=== PATIENT | female | born 1980 | race Caucasian/White ===

== ENCOUNTER → 2022-08-13 09:15 | Outpatient (CLI) | payer BC, SELFPAY ==
--- NOTE | ~2022-08-13 | US_ITS ---
EXAMINATION: US soft tissue head and neck DATE: 08/13/2022 09:36 INDICATION: Tender lymph nodes behind right ear. TECHNIQUE: Multiple grayscale and Doppler ultrasound images of the head and neck were obtained. COMPARISON: None FINDINGS: There are normal superficial lymph nodes posterior to right ear. IMPRESSION: 1. Normal superficial lymph node posterior to right ear. Reviewed, dictated and finalized at location A.
== END ==
PROVIDERS: PCP Family Medicine; Visit Provider Nurse Practitioner
DX: R09.89 Other specified symptoms and signs involving the circulatory and respiratory systems (principal)
CPT/HCPCS: 76536

== ENCOUNTER 2022-08-16 10:06 | Outpatient (CLI) | payer BC, SELFPAY | END 2022-08-16 10:07 | disposition home or self-care (01) | LOC: ANHGOSHLAB 10:08 | PROVIDERS: PCP Family Medicine; Visit Provider Nurse Practitioner | DX: Z13.6 Encounter for screening for cardiovascular disorders (principal); Z13.29 Encounter for screening for other suspected endocrine disorder; Z13.220 Encounter for screening for lipoid disorders; Z13.21 Encounter for screening for nutritional disorder | CPT/HCPCS: 36415 ==

== ENCOUNTER 2022-08-30 07:01 | Outpatient (CLI) | payer BC, SELFPAY ==
[2022-08-30 07:28] LABS: Hematocrit 43.1 % (37.0-47.0); Hemoglobin 14.5 g/dL (12.0-15.0); Mean Corpuscular HGB Conc 33.6 g/dl (32-36); Mean Corpuscular Hemoglobin 29.5 pg (26-34); Mean Corpuscular Volume 87.8 fl (80-100); Mean Platelet Volume 8.2 fl (7.4-10.4); Platelet Count Result 323 k/mm3 (150-375); Red Blood Count 4.91 M/mm3 (4.2-5.4); Red Cell Distribution Width 13.6 % (11.5-14.5); White Blood Count 10.3 K/mm3 (4.5-10.0)
[2022-08-30 07:38] LABS: Alanine Aminotransferase 20 U/L (6-35); Albumin Level 3.9 g/dL (3.5-5.1); Alkaline Phosphatase 79 U/L (38-126); Anion Gap 10 mmol/L (8-16); Aspartate Amino Transferase 22 U/L (14-36); Bilirubin,Total 0.5 mg/dL (0.2-1.3); Blood Urea Nitrogen 13 mg/dL (7-17); Calcium 8.5 mg/dL (8.4-10.2); Carbon Dioxide 22 mmol/L (22-30); Chloride 108 mmol/L (98-107); Cholesterol 188 mg/dL (0-200); Estimated Glomerular Filt Rate > 60; Glucose 118 mg/dL (65-110); HDL Direct 44 mg/dL; Potassium 4.3 mmol/L (3.4-5.0); Sodium 140 mmol/L (137-145); Triglycerides 94 mg/dL (<150)
[2022-08-30 07:49] LABS: LDL Cholesterol Direct 119 mg/dL
[2022-08-30 09:30] LABS: Vitamin D 25 Hydroxy 24.5 ng/mL
[2022-08-30 15:14] LABS: Hemoglobin A1C 5.4 % (<5.7)
== END 2022-08-30 07:02 | disposition home or self-care (01) ==
PROVIDERS: PCP Family Medicine; Visit Provider Nurse Practitioner
DX: D72.829 Elevated white blood cell count, unspecified (principal); Z13.6 Encounter for screening for cardiovascular disorders; E78.5 Hyperlipidemia, unspecified; E55.9 Vitamin D deficiency, unspecified
CPT/HCPCS: 36415; 80053; 80061; 82306; 83036; 85027

== ENCOUNTER 2022-09-27 08:00 | Outpatient (RCR) | payer BC, SELFPAY ==
--- NOTE | 2022-08-16 12:52 | PTOPEVAL1 ---
Assessment and note entered by Mack Wan, PT Evaluation Information Assessment Status Evaluation Reported Pain Level Pain Score 0: Self Report Additional Pain Score Comments Patient reports not having pain, but pins and tingling feeling on R side of the body. Assessment PT Clinical Summary Sheeba is a 41 year old female coming into the clinic today with R sided sciatica. Patient has more sensation issues than pain. She shows decreased core and hip strength, tightness in her R hamstring and reproduced sciatic issues with lumbar vertebrae P-A's, stretching of the low back and R hamstring. Has no leg length discrepency, but not sure that there might also be some SI joint component to the issue. Symptoms also increase with any flexed position. Skilled physical therapy services are indicated to addrees core and hip weakness, correct muscle length imbalances, and improve functional mobility and positional tolerance to promote improved quality of life. Plan of Care Interventions Electrical Stimulation,Gait Training,Hot Pack/Cold Pack,Manual Therapy,Neuro Re-education,Patient/ Caregiver Educati,Therapeutic Activities, Therapeutic Exercise PT Services Indicated Yes Treatment Frequency and 2x for 6 weeks Duration These treatments will address the objective and functional deficits as defined above. The patient will be advanced safely and appropriately in order for the patient to progress towards his/her prior level of function. Additional exercises will be introduced and as well as a comprehensive home exercise program upon discharge, if needed, ?to ensure carryover of functional gains achieved in the clinic. This treatment plan has been reviewed and agreement upon by the patient.
--- NOTE | 2022-09-18 15:49 | PCPTNOTE ---
Patient called & cancelled scheduled appointment this date due to her child being sick.
--- NOTE | 2022-09-27 08:51 | PTOPDC ---
Assessment and note entered by William Read, PT, DPT Evaluation Information Assessment Status Discharge Diagnosis Sciatic pain Onset chronic Subjective Information Pt states she is doing much better. She states she still intermittently gets radiating pain but it only goes down to the knee which is improved from her constant pain in her toes. She reports she can stand as long as she wants, and can sit for a few hours prior to needing to stand and move around. Pt reports 100% improvement since starting therapy . Pt states she can now sleep however she wants without having to worry about her leg going numb and painful. Reported Pain Level Pain Score 0: Self Report Assessment PT Clinical Summary Sheeba presents to therapy today for her progress report following 7 visits of skilled therapy to treat her sciatic nerve pain. Today she reports no pain and no pain at the end of her treatment this date. She continues to demonstrate mild weakness of her R hip. She has progressed towards or met all of her therapy goals at this time. She no longer requires skilled therapy services and will be discharged at this time. Plan of Care Interventions Electrical Stimulation,Gait Training,Hot Pack/Cold Pack,Manual Therapy,Neuro Re-education,Patient/ Caregiver Educati,Therapeutic Activities, Therapeutic Exercise PT Services Indicated Yes Treatment Frequency and to be discharged Duration
== END 2022-09-27 15:48 | disposition home or self-care (01) ==
LOC: ANHGOSHPT 08:00
PROVIDERS: PCP Family Medicine; Visit Provider Nurse Practitioner
DX: M54.31 Sciatica, right side (principal)
CPT/HCPCS: 97110; 97112; 97140; 97161; 97530